=== PATIENT | male | born 1960 | race Caucasian/White ===

== ENCOUNTER 2017-06-24 17:09 | Emergency (ER) | payer BC ==
[~2017-06-24] VITALS: Ht 175.3 cm; Wt 97.7 kg
[~2017-06-24 17:09] MED LIST: AMBIEN 5MG TABLE5 MG PO; ASPIRIN 32325 MG/TAB PO; ASPIRIN E.C. 8181 MG PO; CEPHALEXIN500 M1 PO; COLACE 100100 MG/CAP PO; LEVAQUIN 750MG750 M1 PO; LIPITOR 80MG80 MG PO; LOPRESSOR 225 MG/TAB PO; MAALOX EXTRA S150 ML PO; MILK OF MAGNESI30 ML PO; NAPROSYN500 MG PO; NITROSTAT0.4 MG/TAB SL; NORCO 325 MG-51 TAB PO; PEPCID 20MG TAB20 MG PO; PLAVIX 75MG TAB75 MG PO; TYLENOL 325MG325 MG PO; ULTRAM 50MG TAB50 MG PO; VASOTEC 2.2.5 MG/TAB PO; ZESTRIL2.5 MG PO
[2017-06-24 17:12] VITALS: BP 126/76; TEMP 98.3
[2017-06-24] MEDS ORDERED: NORCO 325 MG-51 TAB PO (19:31)
[2017-06-24 19:45] VITALS: PULSE 62
== END 2017-06-24 19:45 | disposition home or self-care (01) ==
LOC: COL.ER 17:09
DX: S62.614A Displaced fracture of proximal phalanx of right ring finger, initial encounter for closed fracture (principal); S62.616A Displaced fracture of proximal phalanx of right little finger, initial encounter for closed fracture; S62.654A Nondisplaced fracture of middle phalanx of right ring finger, initial encounter for closed fracture; I10 Essential (primary) hypertension; I25.10 Atherosclerotic heart disease of native coronary artery without angina pectoris; E78.00 Pure hypercholesterolemia, unspecified; W18.39XA Other fall on same level, initial encounter

== ENCOUNTER 2017-10-25 16:00 | Outpatient (RCR) | payer BC | END 2017-11-13 | disposition home or self-care (01) | LOC: WSOT | DX: S62.612D Displaced fracture of proximal phalanx of right middle finger, subsequent encounter for fracture with routine healing (principal); W19.XXXD Unspecified fall, subsequent encounter ==